=== PATIENT | male | born 1995 | race Caucasian/White ===

== ENCOUNTER 2017-05-31 16:27 | Emergency (ER) | payer MEDICAID ==
[2017-05-31 16:37] VITALS: BP 153/97
--- NOTE | 2017-05-31 16:57 | ERNOTE ---
Medical Problem HPI - Narrative Date of Service: 05/31/17 - General Chief Complaint: General Assessment Time Seen by Provider: 05/31/17 16:46 Source: patient Exam Limitations: no limitations - Immun/Allergies/Home Medications Immunizations: IMMUNIZATION HX Immunizations Up to Date Yes History of Influenza Vaccine No Hx Pneumococcal Vaccination No Allergies/Adverse Reactions: Allergies No Known Allergies Allergy (Unverified 07/24/14 13:20) Home Medications: HOME MEDICATIONS NK [No Home Medication] 07/24/14 [Last Taken Unknown] - History of Present History Narrative: Pt. comes in with c/o L submandibular lymphnode enlargement for 2 days. Pt. denies any fever, SOB, CP, NVD, fever, recent illness or injury but does state that his throat has been sore as well. Review of Systems - Review of Systems Constitutional: Present: no symptoms reported. Absent: recent illness, fever, chills, weakness, fatigue, malaise EYE: Present: no symptoms reported ENT: Present: sore throat. Absent: nose pain, nose congestion, nasal drainage Respiratory: Present: no symptoms reported. Absent: shortness of breath, cough , wheezing Cardiology: Present: no symptoms reported. Absent: chest pain, palpitations, edema Gastrointestinal/Abdominal: Present: no symptoms reported. Absent: nausea, vomiting, diarrhea, abdominal pain, eating less, drinking less Genitourinary: Present: no symptoms reported Musculoskeletal: Present: no symptoms reported. Absent: back pain, joint pain Skin: Present: no symptoms reported. Absent: rash, change in color Neurological: Present: no symptoms reported. Absent: headache, dizziness/light- headedness, numbness, tingling Hematologic/Lymphatic: Present: swollen glands - L submandibular All Other Systems: All systems neg except as marked - Patient's Past Medical History Patient History - Medical: Depression Patient History - Cardiac/Respiratory: No pertinent hx Patient History - Cancer: No Hx of Cancer Patient History - Surgical Procedures: Ear Tubes Patient History - Other: None - Social History Living Situations: home Abuse History: No History of abuse Psych History: Hx of Depression Smoking Status: Current some day smoker Alcohol Use: none Drug Use: marijuana - Immunizations Immunizations Up to Date: Yes Hx Pneumococcal Vaccination: No History of Influenza Vaccine: No Physical Exam - Physical Exam General Appearance: Present: wd/wn, alert, no apparent distress Head Exam: Present: normal inspection, no evidence of injury Eye Exam: Normal inspection: bilateral, PERRL: bilateral, EOMI: bilateral Ears, Nose, Throat: Present: normal except -, pharyngeal erythema Neck: Present: lymphadenopathy (L) - Submandibular. Absent: lymphadenopathy (R) Respiratory: Present: no respiratory distress, normal breath sounds, no accessory muscle use, chest nontender, lungs clear Cardiovascular/Chest: Present: regular rate, rhythm, no murmur, normal peripheral pulses Gastrointestinal/Abdominal: Present: normal bowel sounds, nontender, nondistended, soft, no organomegaly Back Exam: Present: normal inspection Extremity Exam: Present: normal inspection Neurological Exam: Present: alert, oriented, normal mood/affect, no motor/ sensory deficits Skin Exam: Present: normal color, warm/dry. Absent: pallor, skin rash ED Progress - Date and Time Seen: Date and Time: 05/31/17 17:38 feel that this is likely viral but if not improved pt. may need further studies on outpatient basis. - Results and Orders Patient's Lab Results:: I have reviewed the patient's lab results. - Vital Signs Patient's Vital Signs:: I have reviewed the patient's vital signs. Vital Signs: Vital Signs 05/31/17 16:32 Temperature 37.2 C Pulse Rate 72 Respiratory 16 Rate Blood Pressure 153/97 O2 Sat by Pulse 98 Oximetry - Progress/Reassessment Chief Complaint: General Assessment Departure Clinical Impression: Viral illness - Departure Disposition: Home self-care Condition: Good Instructions: Upper Respiratory Infection, Pediatric, [id number] Additional Instructions: Please make appointment to see your primary provider if you do not improve in 2- 3 days. Referrals: Clifford Duarte MD [Primary Care Provider] -
== END 2017-05-31 17:45 | disposition home or self-care (01) ==
LOC: ER 16:27
DX: B34.9 Viral infection, unspecified (principal); F17.200 Nicotine dependence, unspecified, uncomplicated; Z96.22 Myringotomy tube(s) status